=== PATIENT | female | born 1945 | race Caucasian/White ===

== ENCOUNTER 2021-04-27 09:10 | Day surgery (SDC) | payer MEDICARE ==
[2021-04-22 16:30] LABS: CLARITY,URINE CLOUDY (Clear); COLOR,URINE YELLOW (Yellow); GLUCOSE, URINE NEGATIVE (Neg); KETONES,URINE NEGATIVE (Neg); LEUKOCYTE ESTERASE ,URINE LARGE (Neg); NITRITES, URINE NEGATIVE (Neg); OCCULT BLOOD,URINE TRACE-INTACT (Neg); PROTEIN,URINE NEGATIVE (Neg); UA COLLECTION TYPE CLN CATCH MIDSTREAM; UROBILINOGEN,URINE 0.2 E.U/dL (0.2-1.0)
[2021-04-22 16:32] LABS: ALBUMIN 3.3 G/DL (3.4-5.0); ALBUMIN/GLOBULIN RATIO 0.6 (1.1-1.5); ALKALINE PHOSPHATASE 117 IU/L (46-116); BASOPHILS % (AUTO) 0.2 % (0-1); BLOOD UREA NITROGEN 39 MG/DL (7-18); BUN/CREATININE RATIO 37.1 (6.6-38.0); CHLORIDE 105 MMOL/L (99-107); CREATININE 1.05 MG/DL (0.40-0.90); EOSINOPHILS # (AUTO) 0.2 X10'3 (0-0.9); EOSINOPHILS % (AUTO) 2.7 % (0-6); LYMPHOCYTES # (AUTO) 2.1 X10'3 (1.1-4.8); LYMPHOCYTES % (AUTO) 25.6 % (21-51); MEAN CORPUSCULAR HEMOGLOBIN 28.9 PG (27.0-31.0); MEAN CORPUSCULAR HGB CONC 33.1 g/dL (33.0-36.5); MEAN CORPUSCULAR VOLUME 87.4 FL (78-98); MEAN PLATELET VOLUME 8.7 FL (7.4-10.4); MONOCYTES # (AUTO) 0.6 X10'3 (0-0.9); MONOCYTES % (AUTO) 7.2 % (2-12); NEUTROPHILS # (AUTO) 5.3 X10'3 (1.8-7.7); NEUTROPHILS % (AUTO) 64.3 % (42-75); PRE OP ALT 27 U/L (30-65); PRE OP ANION GAP 8 (8-16); PRE OP AST 30 U/L (10-37); PRE OP BILIRUB, TOTAL 0.2 MG/DL (0.0-1.0); PRE OP HEMATOCRIT 40.1 % (35.0-45.0); PRE OP HEMOGLOBIN 13.3 g/dL (12.0-16.0); PRE OP PLATELET COUNT 252 X10'3 (140-440); PRE OP POTASSIUM 4.2 MMOL/L (3.4-5.1); PRE OP SODIUM 141 MMOL/L (135-145); RED BLOOD COUNT 4.59 X10'6 (4.20-5.60); RED CELL DISTRIBUTION WIDTH 13.7 % (11.5-14.5); TOTAL CARBON DIOXIDE 27.7 MMOL/L (24-32); TOTAL PROTEIN 8.8 G/DL (6.4-8.2); eGFR 51 ML/MIN
[2021-04-22 16:33] LABS: PRE OP GLUCOSE 95 MG/DL (70-104)
[2021-04-22 16:52] LABS: BACTERIA,URINE 2+ /HPF (Neg); MUCUS STRANDS NONE SEEN /LPF (Neg); RBC,URINE 0-2 /HPF (0-2); SQUAMOUS EPITHELIAL CELL,UR NONE SEEN /LPF (FEW); TRANSITIONAL EPI CELLS,URINE FEW /HPF; WBC CLUMPS,URINE MANY /HPF (NEGATIVE); WBC,URINE TNTC /HPF (0-4)
[2021-04-27] VITALS (11 sets, daily range): BP systolic 146–192; BP diastolic 68–88
[~2021-04-27] VITALS: Ht 177.8 cm; Wt 83.0 kg
[~2021-04-27 09:10] MED LIST: LISI40TA13 PO; cefazolin/dext.iso 2gm/100ml IV ONE; famotidine 20mg tablet PO ONE; ringers solution, lacted 1,000 ML IV SCH
[2021-04-27] MEDS ORDERED: BUPIVAcaine 0.5% inj/PF 30 ML ONE (14:10)
[2021-04-27] MEDS ORDERED: fentaNYL/PF 50MCG/1 ML 2ML syringe ONE (14:36)
[2021-04-27] MEDS ORDERED: midazolam 1 mg/ML 2ml injection ONE (14:37)
[2021-04-27] MEDS ORDERED: propofol inj 20 ML IV ONE (14:38)
[2021-04-27] MEDS ORDERED: dexamethasone sod phosphate 4mg/ml inj. ONE (15:09)
[2021-04-27] MEDS ORDERED: ondansetron/PF 4mg/2ml inj ONE (15:09)
[2021-04-27] MEDS ORDERED: meperidine/PF 25mg/ml syringe ONE (15:37)
--- NOTE | 2021-04-27 16:00 | NUR ---
Received from OR via , accompanied by Anesthesiologist DR DARDEN and report given by Anesthesiolgist. PT PRESENT WITH 20G RIGHT HAND, DRESSING ON LEFT FLANK WITH GHASSAN DRAIN DRY AND INTACT. VSS. Addendum: 04/27/21 at 1609 by Ro Loaiza RN, RN Amended: Links added.
[2021-04-27] MEDS ORDERED: morphine 4 MG/ML inj SYRINge IV PRN (16:10)
[2021-04-27] MEDS ORDERED: ringers solution, lacted 1,000 ML IV SCH (16:10)
[2021-04-27] MEDS ORDERED: ondansetron/PF 4mg/2ml inj IV PRN (16:10)
[2021-04-27] MEDS ORDERED: meperidine/PF 25mg/ml syringe IV PRN ×3 (16:10)
[2021-04-27] MEDS ORDERED: proCHLORperazine 10 MG/2 ml inj IV PRN (16:10)
[2021-04-27] MEDS ORDERED: morphine 2 MG/ML inj. syringe IV PRN (16:10)
--- NOTE | 2021-04-27 17:30 | NUR ---
I HAVE REVIEWED D/C INSTRUCTIONS WITH PATIENT AND THEY HAVE VERBALIZED UNDERSTANDING OF INSTRUCTIONS. PATIENT D/C HOME WITH ALL BELONGINGS AND FAMILY GAVE TRANSPORT. DC INSTRUCTIONS GIVEN TO PT , DEMONSTRATIONS OF HOW TO WORK GHASSAN DRAIN AND PT'S GAVE VERBAL UNDERDTANDING OF HOW TO USE THE GHASSAN DRAIN. PT SENT HOME WITH GLASSES AND 1 PT BAG SENT HOME WITH PT. Addendum: 04/27/21 at 1800 by Ro Loaiza RN, RN Amended: Links added.
== END 2021-04-27 17:30 | disposition home or self-care (01) ==
LOC: PRE-OP 09:10
PROVIDERS: ATTEND Surgery
DX: T81.89XA Other complications of procedures, not elsewhere classified, initial encounter (principal); E55.9 Vitamin D deficiency, unspecified; E61.1 Iron deficiency; Z79.899 Other long term (current) drug therapy; Z20.822 Contact with and (suspected) exposure to COVID-19; Z72.89 Other problems related to lifestyle; Z82.49 Family history of ischemic heart disease and other diseases of the circulatory system; Y83.8 Other surgical procedures as the cause of abnormal reaction of the patient, or of later complication, without mention of misadventure at the time of the procedure; Y92.89 Other specified places as the place of occurrence of the external cause
CPT/HCPCS: 13160; 36415; 80053; 81001; 82948; 85025; 87088; 93005; A6222; J1100; J2175; J2250; J2405; J2704; J3010; U0003; U0005; Z7506; Z7508; Z7512; A4215; A4618; A6449; A7000; J7120